=== PATIENT | male | born 1980 ===

== ENCOUNTER 2025-02-14 03:36 | Inpatient (IN) | payer OTHER ==
[~2025-02-14] VITALS: Ht 172.7 cm; Wt 83.5 kg
[2025-02-14 06:32] VITALS: BP 124/79; PULSE 63; RESP 18; TEMP 97.5; O2SAT 99
[2025-02-14] MEDS ORDERED: ATOR20TA50 PO (07:25)
[2025-02-14 09:00] VITALS: BP 136/85; PULSE 66; RESP 16; TEMP 98.1; O2SAT 96
--- NOTE | 2025-02-14 10:55 | DVHHP2 ---
Exam Vital Signs Vital Signs Date Time Temp Pulse Resp B/P (MAP) Pulse Ox O2 Delivery O2 Flow Rate FiO2 02/14/25 09:00 98.1 66 16 136/85 (102) 96 98.1 02/14/25 06:39 Room Air* 0 21 Assessment/Plan Assessment/Plan see dictated note Plan discussed with: Patient Date of Service: February 14, 2025 Billing Provider: GIL VANN MD Common Visit Codes: [id number] INP/OBS CARE (HIGH) GIL VANN MD February 14, 2025 10:55
[2025-02-14] MEDS ORDERED: ONDANSETRON HCL 4 MG/2 ML VIAL IV PRN (11:00)
[2025-02-14] MEDS ORDERED: HYDROcodone-ACET 5/325MG TAB PO PRN (11:00)
[2025-02-14] MEDS ORDERED: ACETAMINOPHEN 325 MG TAB PO PRN (11:00)
--- NOTE | 2025-02-14 11:36 | DVHHP ---
ADMIT DATE: 02/14/2025 HISTORY OF PRESENT ILLNESS: The patient is a 44-year-old gentleman who came in with history of increasing pain in all the muscles primarily in the upper extremity along with dark-colored urine. The patient had [place]. He also likely took less fluid intake. The patient also takes statins. No history of nausea or vomiting. No history of dyspnea or syncope. REVIEW OF SYSTEMS: Review of rest of systems otherwise currently negative. PAST MEDICAL HISTORY: Significant for hyperlipidemia. MEDICATIONS: He takes atorvastatin. SOCIAL HISTORY: Denies smoking or alcohol. Lives alone. Denies any drug use. FAMILY HISTORY: Negative. PHYSICAL EXAMINATION: GENERAL: The patient is awake and alert. VITAL SIGNS: Temperature of 97.5, pulse 66 per minute, blood pressure 136/85. SHEENT: Unremarkable. There is no JVD. No pedal edema. LUNGS: Equal bilaterally and no added sounds. CARDIOVASCULAR: S1 and S2 is regular without murmurs. ABDOMEN: Soft. There is no organomegaly. NEUROLOGIC: Nonfocal. MUSCULOSKELETAL: There is tenderness of the proximal muscles. ASSESSMENT AND PLAN: * Severe rhabdomyolysis. The patient will be placed on IV fluids and laboratory tests will be obtained. * Hyperlipidemia. * Transaminitis. MD MICHELE Christianson/ALEXX TID: [id number] RECEIPT: [id number]
[2025-02-14 11:44] LABS: Basophils # (auto) 0 10 ^3/uL (0-0.2); Basophils % (auto) 0.4 % (0.0-2.0); Eosinophils # (auto) 0 10 ^3/uL (0-0.8); Eosinophils % (auto) 0.9 % (0.0-7.0); Hematocrit 48.8 % (41.0-53.0); Hemoglobin 16.3 g/dL (13.5-17.5); Lymphocytes # (auto) 1.7 10 ^3/uL (0.4-5.4); Lymphocytes % (auto) 33.5 % (10.0-50.0); Mean Corpuscular Hemoglobin 33.7 pg (28.0-32.0); Mean Corpuscular Hgb Conc. 33.4 g/dL (32.0-36.0); Mean Corpuscular Volume 100.8 fL (80.0-100.0); Monocytes # (auto) 0.4 10 ^3/uL (0-1.3); Monocytes % (auto) 7.6 % (0.0-12.0); Neutrophils % (auto) 57.6 % (37.0-80.0); Nucleated Red Blood Cells % 0.2 %; Platelet Count (auto) 185 10^3/uL (140-450); Red Blood Cells 4.83 10^6/uL (4.5-5.90); Red Cell Distribution Width 12.6 % (11.8-14.3); White Blood Cell 5.2 10^3/uL (4.4-10.8)
[2025-02-14 11:56] LABS: INR 1.08 (0.9-1.15); Partial Thromboplastin Time 28.8 SEC (24.5-34.5); Prothrombin Time 11.4 sec (9.3-11.8)
[2025-02-14 11:59] LABS: Alkaline Phosphatase 84 U/L (46-116); Anion Gap 6 (5-15); BUN/Creatinine Ratio 8.3 (10.0-20.0); Calcium 9.1 mg/dL (8.7-10.4); Carbon Dioxide 26 mmol/L (20-31); Glucose 80 mg/dL (74-106); Potassium 4.1 mmol/L (3.5-5.1); Sodium 142 mmol/L (136-145); Total Protein 6.6 g/dL (5.7-8.2)
[2025-02-14 12:00] LABS: Alanine Aminotransferase 471 U/L (7-40); Bilirubin, Total 2.1 mg/dL (0.2-1.0); Blood Urea Nitrogen 9 mg/dL (9-23); Chloride 110 mmol/L (98-107)
[2025-02-14 12:10] LABS: Aspartate Aminotransferase 2010 U/L (13-40)
[2025-02-14 12:35] LABS: Creatine Kinase IFCC > 39000 U/L (46-171)
[2025-02-14 12:49] VITALS: BP 132/87; PULSE 58; RESP 18; TEMP 98; O2SAT 99
[2025-02-14 16:54] VITALS: BP 117/70; PULSE 66; RESP 18; TEMP 98.1; O2SAT 97
[2025-02-14 21:00] VITALS: BP 126/90; PULSE 68; RESP 16; TEMP 97.7; O2SAT 96
[2025-02-14] MEDS: SODIUM BICARB 50mEq/50ml Vial 50 ML in SOD CHL 0.45% 1,000 ML IV SCH (21:02)
[2025-02-15 01:00] VITALS: BP 132/89; PULSE 61; RESP 17; TEMP 98; O2SAT 100
[2025-02-15 05:00] VITALS: BP 125/84; PULSE 70; RESP 16; TEMP 97.9; O2SAT 97
[2025-02-15 07:59] LABS: Basophils # (auto) 0 10 ^3/uL (0-0.2); Basophils % (auto) 0.4 % (0.0-2.0); Eosinophils # (auto) 0.1 10 ^3/uL (0-0.8); Eosinophils % (auto) 1.4 % (0.0-7.0); Hematocrit 44.3 % (41.0-53.0); Hemoglobin 15.1 g/dL (13.5-17.5); Lymphocytes # (auto) 1.8 10 ^3/uL (0.4-5.4); Mean Corpuscular Volume 100.2 fL (80.0-100.0); Monocytes # (auto) 0.4 10 ^3/uL (0-1.3); Monocytes % (auto) 6.9 % (0.0-12.0); Neutrophils # (auto) 3.6 10 ^3/uL (1.6-8.6); Neutrophils % (auto) 61.3 % (37.0-80.0); Nucleated Red Blood Cells % 0.2 %; Platelet Count (auto) 182 10^3/uL (140-450); Red Blood Cells 4.42 10^6/uL (4.5-5.90); Red Cell Distribution Width 12.4 % (11.8-14.3); White Blood Cell 5.9 10^3/uL (4.4-10.8)
[2025-02-15 08:12] LABS: Albumin 3.7 g/dL (3.2-4.8); Alkaline Phosphatase 75 U/L (46-116); Anion Gap 7 (5-15); BUN/Creatinine Ratio 9.3 (10.0-20.0); Blood Urea Nitrogen 10 mg/dL (9-23); Calcium 9.3 mg/dL (8.7-10.4); Carbon Dioxide 26 mmol/L (20-31); Glucose 94 mg/dL (74-106); Potassium 3.8 mmol/L (3.5-5.1); Sodium 142 mmol/L (136-145); Total Protein 6.1 g/dL (5.7-8.2)
[2025-02-15 08:13] LABS: Alanine Aminotransferase 450 U/L (7-40); Bilirubin, Total 1.6 mg/dL (0.2-1.0); Chloride 109 mmol/L (98-107)
[2025-02-15 08:35] LABS: Aspartate Aminotransferase 1692 U/L (13-40); Creatine Kinase IFCC > 39000 U/L (46-171)
[2025-02-15 09:00] VITALS: BP 130/83; PULSE 69; RESP 16; TEMP 97.5; O2SAT 96
[2025-02-15 09:06] LABS: Amphetamine Screen, Urine Neg (NEGATIVE); Barbiturate Scree,Urine Neg (NEGATIVE); Benzodiazephine Screen, Urine Neg (NEGATIVE); Cannabinoid Screen, Urine Neg (NEGATIVE); Cocaine Screen, Urine Neg (NEGATIVE); Opiate Scree,Urine Neg (NEGATIVE); Phencyclidine Screen, Urine Neg (NEGATIVE)
[2025-02-15 13:24] VITALS: BP 136/89; PULSE 73; RESP 16; TEMP 97.8; O2SAT 96
--- NOTE | 2025-02-15 14:03 | DVHPN2 ---
Reviewed: Care Plan, H&P, Labs, Medications, Previous Orders, Radiology Changes from previous H/P or p: No Changes General: Per HPI Objective Vitals Vital Signs Date Time Temp Pulse Resp B/P (MAP) Pulse Ox O2 Delivery O2 Flow Rate FiO2 02/15/25 13:24 97.8 73 16 136/89 (105) 96 97.8 02/14/25 20:00 Room Air* 0 21 Intake/Output Intake and Output 02/15/25 07:00 Intake Total 2740 ml Balance 2740 ml Intake Oral 1690 ml IV Total 1050 ml # Voids 5 # Bowel Movements 1 General Appearance: Alert, Oriented X3, Cooperative Cardiovascular: Regular rate, Normal S1, Normal S2 Abdomen: Normal bowel sounds, Soft Medications Current Medications Medications Dose Ordered Sig/Marcello Route Start Time Stop Time Status Last Admin Dose Admin Sodium Bicarbonate 50 ml/ Sodium Chloride 1,050 ml @ 150 mls/hr Q7H IV 02/14/25 11:00 02/15/25 06:29 150 MLS/HR Acetaminophen 650 mg Q6HP PRN PO 02/14/25 11:00 Acetaminophen/ Hydrocodone Bitart 1 tab Q6HPRN PRN PO 02/14/25 11:00 Ondansetron HCl 4 mg Q6HPRN PRN IV 02/14/25 11:00 Laboratory Results Laboratory Tests 02/15/25 06:06 Chemistry Test 02/15/25 06:06 Albumin 3.7 g/dL (3.2-4.8) Calcium Level 9.3 mg/dL (8.7-10.4) Total Protein 6.1 g/dL (5.7-8.2) LFT Test 02/15/25 06:06 Alanine Aminotransferase (ALT) 450 U/L (7-40) H Alkaline Phosphatase 75 U/L (46-116) Aspartate Amino Transferase (AST) 1692 U/L (13-40) H Total Bilirubin 1.6 mg/dL (0.2-1.0) H Labs and/or images reviewed: Labs reviewed by me, Image(s) reviewed by me Assessment/Plan Assessment/Plan The patient is a 44-year-old gentleman who came in with history of increasing pain in all the muscles primarily in the upper extremity along with dark-colored urine. The patient had [place]. He also likely took less fluid intake. The patient also takes statins. No history of nausea or vomiting. No history of dyspnea or syncope. rhabdomyolysis hyperlipidemia transaminitis Plan discussed with: Patient Date of Service: February 15, 2025 Billing Provider: MAKI CORBETT DO Common Visit Codes: [id number] INP/OBS CARE(HIGH) MAKI CORBETT DO February 15, 2025 14:03
[2025-02-15] MEDS: SODIUM CHLORIDE 0.9% 3,000 ML IV ONE (15:09)
[2025-02-15 16:52] VITALS: BP 120/79; PULSE 72; RESP 16; TEMP 98.2; O2SAT 98
[2025-02-15 21:00] VITALS: BP 122/83; PULSE 67; RESP 16; TEMP 97.4; O2SAT 97
[2025-02-16] VITALS (7 sets, daily range): BP systolic 124–149; BP diastolic 68–97; PULSE 60–70; RESP 16–18; TEMP 97.8–98.3; O2SAT 96–99
--- NOTE | 2025-02-16 12:33 | DVHPN2 ---
Reviewed: Care Plan, H&P, Labs, Medications Changes from previous H/P or p: No Changes General: Per HPI Objective Vitals Vital Signs Date Time Temp Pulse Resp B/P (MAP) Pulse Ox O2 Delivery O2 Flow Rate FiO2 02/16/25 08:42 97.9 60 16 134/89 (104) 99 97.9 02/16/25 08:00 Room Air* 0 21 Intake/Output Intake and Output 02/16/25 07:00 Intake Total 1395 ml Balance 1395 ml Intake Oral 1395 ml # Voids 5 Medications Current Medications Medications Dose Ordered Sig/Marcello Route Start Time Stop Time Status Last Admin Dose Admin Sodium Bicarbonate 50 ml/ Sodium Chloride 1,050 ml @ 150 mls/hr Q7H IV 02/14/25 11:00 02/16/25 11:55 150 MLS/HR Acetaminophen 650 mg Q6HP PRN PO 02/14/25 11:00 Acetaminophen/ Hydrocodone Bitart 1 tab Q6HPRN PRN PO 02/14/25 11:00 Ondansetron HCl 4 mg Q6HPRN PRN IV 02/14/25 11:00 Laboratory Results Laboratory Tests 02/15/25 06:06 Assessment/Plan Assessment/Plan The patient is a 44-year-old gentleman who came in with history of increasing pain in all the muscles primarily in the upper extremity along with dark-colored urine. The patient had increased [place]. He also likely took less fluid intake. The patient also takes statins. No history of nausea or vomiting. No history of dyspnea or syncope. rhabdomyolysis hyperlipidemia transaminitis CPK elevated needs to have more iv fluid Plan discussed with: Patient Date of Service: February 16, 2025 Billing Provider: MAKI CORBETT DO Common Visit Codes: [id number] INP/OBS CARE(HIGH) MAKI CORBETT DO February 16, 2025 12:33
[2025-02-16] MEDS: SODIUM CHLORIDE 0.9% 1,000 ML IV SCH (16:30)
[2025-02-16] MEDS ORDERED: SODIUM CHLORIDE 0.9% 1,000 ML IV ONE ×2 (16:30)
[2025-02-16] MEDS: SODIUM CHLORIDE 0.9% 3,000 ML IV ONE (16:47)
[2025-02-17 01:00] VITALS: BP 127/81; PULSE 63; RESP 17; TEMP 98.4; O2SAT 97
[2025-02-17 04:49] VITALS: BP 135/87; PULSE 59; RESP 16; TEMP 98.2; O2SAT 95
[2025-02-17 11:37] VITALS: BP 132/85; PULSE 66; RESP 18; TEMP 36.8; O2SAT 98
[2025-02-17 13:00] VITALS: BP 138/90; PULSE 67; RESP 18; TEMP 98.3; O2SAT 97
[2025-02-17 13:30] VITALS: BP 137/92; PULSE 67; RESP 18; TEMP 98.3; O2SAT 97
--- NOTE | 2025-02-17 20:50 | DVHDS2 ---
Discharge Summary Date of Admission February 14, 2025 at 06:36 Date of Discharge: Feb 17, 2025 Labs/Diagnostic Data: Laboratory Results Test 02/17/25 05:01 02/15/25 08:46 02/15/25 06:06 02/14/25 11:30 Creatine Kinase > 24707 U/L (46-171) Urine Opiates Screen Neg (NEGATIVE) Urine Fentanyl Screen Neg (NEGATIVE) Urine Barbiturates Screen Neg (NEGATIVE) Urine Phencyclidine Screen Neg (NEGATIVE) Urine Amphetamines Screen Neg (NEGATIVE) Urine Benzodiazepines Screen Neg (NEGATIVE) Urine Cocaine Screen Neg (NEGATIVE) Urine Cannabinoids Screen Neg (NEGATIVE) White Blood Count 5.9 10^3/uL (4.4-10.8) Red Blood Count 4.42 10^6/uL (4.5-5.90) Hemoglobin 15.1 g/dL (13.5-17.5) Hematocrit 44.3 % (41.0-53.0) Mean Corpuscular Volume 100.2 fL (80.0-100.0) Mean Corpuscular Hemoglobin 34.0 pg (28.0-32.0) Mean Corpuscular Hemoglobin Concent 34.0 g/dL (32.0-36.0) Red Cell Distribution Width 12.4 % (11.8-14.3) Platelet Count 182 10^3/uL (140-450) Mean Platelet Volume 9.0 fL (6.9-10.8) Neutrophils (%) (Auto) 61.3 % (37.0-80.0) Lymphocytes (%) (Auto) 30.0 % (10.0-50.0) Monocytes (%) (Auto) 6.9 % (0.0-12.0) Eosinophils (%) (Auto) 1.4 % (0.0-7.0) Basophils (%) (Auto) 0.4 % (0.0-2.0) Neutrophils # (Auto) 3.6 10 ^3/uL (1.6-8.6) Lymphocytes # (Auto) 1.8 10 ^3/uL (0.4-5.4) Monocytes # (Auto) 0.4 10 ^3/uL (0-1.3) Eosinophils # (Auto) 0.1 10 ^3/uL (0-0.8) Basophils # (Auto) 0 10 ^3/uL (0-0.2) Nucleated Red Blood Cells 0.2 % Sodium Level 142 mmol/L (136-145) Potassium Level 3.8 mmol/L (3.5-5.1) Chloride Level 109 mmol/L (98-107) Carbon Dioxide Level 26 mmol/L (20-31) Anion Gap 7 (5-15) Blood Urea Nitrogen 10 mg/dL (9-23) Creatinine 1.08 mg/dL (0.700-1.30) Glomerular Filtration Rate Calc 86 mL/min (>90) BUN/Creatinine Ratio 9.3 (10.0-20.0) Serum Glucose 94 mg/dL (74-106) Calcium Level 9.3 mg/dL (8.7-10.4) Total Bilirubin 1.6 mg/dL (0.2-1.0) Aspartate Amino Transferase (AST) 1692 U/L (13-40) Alanine Aminotransferase (ALT) 450 U/L (7-40) Alkaline Phosphatase 75 U/L (46-116) Total Protein 6.1 g/dL (5.7-8.2) Albumin 3.7 g/dL (3.2-4.8) Prothrombin Time 11.4 sec (9.3-11.8) Prothrombin Time INR 1.08 (0.9-1.15) Activated Partial Thromboplast Time 28.8 SEC (24.5-34.5) Other Laboratory Tests 02/15/25 06:06 Brief Hx & Hospital Course: The patient is a 44-year-old gentleman who came in with history of increasing pain in all the muscles primarily in the upper extremity along with dark-colored urine. The patient had increased [place]. He also likely took less fluid intake. The patient also takes statins. No history of nausea or vomiting. No history of dyspnea or syncope. rhabdomyolysis hyperlipidemia transaminitis 02/16/2025 CPK elevated needs to have more iv fluid 02/17/2025 discharged to home Condition at Discharge: Fair Final Diagnosis/Problems List RHABDOMYOLYSIS Discharge Disposition: Home Discharge Instruct/Medications Diet: Cardiac 2g Na,low cholest Activity: No Restrictions, As Tolerated Discharge Statement: "Patient was advised to return to the ER or call 911 if any headaches, dizziness, shortness of breath, chest pain, abdominal pain, bleeding, fevers, or worsening of medical condition. Patient was counseled about treatment plan, medications, possible side effects, patientverbalized understanding. All questions were answered to the best of my ability. This discharge took greater then 30 minutes in planning, reviewing documentation, counseling the patient, and discussing with other team members." ASSESSMENT ASSESSMENT Assessment RHABDOMYOLYSIS Date of Service: Feb 17, 2025 Billing Provider: MAKI CORBETT DO Common Visit Codes: [id number] DISCH DAY >30min MAKI CORBETT DO Feb 17, 2025 20:50
== END 2025-02-17 14:10 | disposition home or self-care (01) | DRG 558 ==
LOC: WEST WING 06:36
PROVIDERS: ADMIT Internal Medicine; ATTEND Internal Medicine
DX: M62.82 Rhabdomyolysis (principal); E78.5 Hyperlipidemia, unspecified; R74.01 Elevation of levels of liver transaminase levels
CPT/HCPCS: 36415; 80053; 80307; 82550; 85025; 85610; 85730; G0378